=== PATIENT | female | born 1995 ===

== ENCOUNTER 2017-10-15 17:28 | Emergency (ER) | payer OTHER ==
--- NOTE | 2017-10-15 20:44 | US ---
EXAM: US Biophysical Profile Without Non-Stress Testing EXAM DATE/TIME: Exam ordered 10/15/2017 6:09 PM CLINICAL HISTORY: 21 years old, female; Signs and symptoms; Other: Decreased movement; TECHNIQUE: Real-time ultrasound of the maternal pelvis for biophysical profile evaluation with image documentation. COMPARISON: No relevant prior studies available. FINDINGS: breathing movements: Present. Score 2/2. Gross body movements: Present. Score 2/2. tone: Present. Score 2/2. Qualitative amniotic fluid volume: Within normal limits. Score 2/2. Biometry BPD = [9.5 to cm]; Estimated Menstrual Age = [38 w 6 d]; Range = [34 E9U-48F0S] HC = [35.45 cm]; Estimated Menstrual Age = [41 w 3 d]; Range = [92W5F-71G0C] AC = [34.72 cm]; Estimated Menstrual Age = [38 w 4 d]; Range = [71A7J-88Q4Y] FL = [7.34 cm]; Estimated Menstrual Age = [37 w 4 d]; Range = [46U7W-82 W5D] HC/AC Ratio = [1.02] normal 0.87-1.06 EFW = 3579 g plus or -537 g (7 lbs. 14 oz. plus or -1 lb. 3 oz.) FANTA= 12.78 Placenta: Posterior and fundal HR =[128 bpm] Cervix =2.67 cm Survey Heart [Normal] Stomach [Normal] Bladder [Normal] 3 vessel CORD (normal) IMPRESSION: 1. Single live intrauterine with an estimated menstrual age of 39 weeks and 1 day plus or -2 weeks and 5 days. Expected date of delivery 10/21/2017. 2. Normal biophysical profile ultrasound. Score 8/8. 3. Limited survey. 4. Mild cervical shortening
[2017-10-16 00:05] VITALS: RESP 18; TEMP 98.1
== END 2017-10-15 20:00 | disposition home or self-care (01) ==
LOC: C.EROB 17:28
DX: O36.8130 Decreased fetal movements, third trimester, not applicable or unspecified (principal); Z3A.39 39 weeks gestation of pregnancy

== ENCOUNTER 2017-10-21 10:41 | Inpatient (IN) | payer OTHER ==
--- NOTE | 2017-10-21 13:13 | US ---
PROCEDURE: BIOPHYSICAL PROFILE HISTORY: Please check FANTA. COMPARISON: Comparison is made to the previous study dated 10/15/2017 TECHNIQUE: Real-time ultrasound of the maternal pelvis for biophysical profile evaluation with image documentation. FINDINGS: breathing movements: Present. Score 2/2. Gross body movements: Present. Score 2/2. tone: Present. Score 2/2. Qualitative amniotic fluid volume: Within normal limits, score 2/2. Amniotic fluid index FANTA: 12.36 centimeter. Biometry: BPD = 9.74 cm; femoral length: 7.83 centimeter Placenta: Posterior and fundal. HR =140 bpm. Cervix = 2.89 cm. Survey. Heart Normal. Stomach Normal. Bladder Normal. IMPRESSION: Single intrauterine live with ultrasound estimated gestational age of 39 weeks 6 days 2 weeks 6 days. Estimated date of delivery by ultrasound is 10/22/2017. Sonographic biophysical profile 8 of 8. Amniotic fluid index 12.36 centimeter. Cervix closed measures 2.89 centimeter.
[2017-10-21] MEDS ORDERED: Lactated Ringer's 1,000 ML IV SCH ×4 (13:30→21:32)
[2017-10-21 14:12] LABS: BASO % 0.2 % (0.0-2.0); EOS % 0.3 % (0.0-4.0); HEMOGLOBIN 11.4 g/dL (11.0-16.0); LYMPH # 1.4 K/uL (1.0-4.3); LYMPH % 13.3 % (20.0-40.0); MEAN CELL VOLUME 80.1 fL (81.0-99.0); MEAN CORPUSCULAR HGB CONC 33.8 g/dL (33.0-37.0); MEAN PLATELET VOLUME 8.2 fL (7.2-11.7); MONO # 0.7 K/uL (0.0-0.8); MONO % 7.4 % (0.0-10.0); NEUT % 78.8 % (50.0-75.0); RBC 4.22 Mil/uL (3.80-5.20); RED CELL DISTRIBUTION WIDTH 14.7 % (11.5-14.5); WHITE BLOOD COUNT 10.1 K/uL (4.8-10.8)
[2017-10-21] MEDS ORDERED: Oxytocin 30 UNIT 30 UNITS/500 ML BAG IV SCH ×2 (14:15→17:15)
[2017-10-21] MEDS ORDERED: Oxytocin 30 UNIT 30 UNITS/500 ML BAG IV ONE (14:16)
--- NOTE | 2017-10-21 14:19 | OBHP ---
Datetime: 10/21/2017 14:05 IP Adm Impression: Term, intrauterine HEENT - PN: Normal General - PN: Normal FHR - Baseline A Provider: 135 Contraction Comments Provider: q2-6min IP Hx Assessment: The History has been Reviewed and is Current EGA AdmitDate IP: 39.6 Vital Signs Provider: Reviewed; Within Normal Limits IP Chief Complaint: Uterine contractions NICHD Variability Prov Fetus A: Moderate 6-25bpm NICHD Accel Fetus A IP Provider: 15X15 FHR Category Provider Fetus A: Category I NICHD Decel Fetus A IP Provider: None Dilatation, Provider: 5 Effacement, Provider: 80 Station, Provider: -3 Datetime: 10/21/2017 11:23 IP Admit Plan: Observation/Evaluation Admit Comment, IP Provider: Patient is a 21 year old at 39w6d JOSHUA 10/22/17 by LMP 01/15/17 c/w 9w4d US presents to L+D for contractions that started at 3am this morning. Patient states that she f eels contractions every 5 min and pain scale is 5/10 at this time. Also reports losing her mucous plu g. Denies recent intercourse. Patient was recently seen on 10/15/17 for decreased FM, at that time BPP was 8/8 and NST was reactive. Endorses +FM, denies VB, LOF. Issues: Denies Patient goes to [facility] for care OB Hx: 1. 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 agree w/ above assessment and plan. Pelvic Type - PN: Adequate Extremities - PN: Normal Abdomen - PN: Normal Back - PN: Normal Lungs - PN: Normal Heart - PN: Normal Neurologic - PN: Normal Presentation-Admit: Vertex Membranes, Provider: Intact Comments, ACOG Physical Exam: VSS Gen: AAOx3 Abd: Soft, gravid Ext: No clubbing, cyanosis, edema SVE: 3-50/-2 (Examined by Dr Galarza) Genitourinary Exam: Normal Datetime: 10/15/2017 17:58 IP Chief Complaint Other: Abdominal pressure
[2017-10-21] MEDS ORDERED: cefOXitin IV 2 gm in Saline 2 GM/50 ML BAG IVPB ONE (14:21)
[2017-10-21] MEDS ORDERED: Sodium Citrate/Citric Acid 15 ml Sol PO ONE (14:21)
[2017-10-21 14:24] LABS: ALB/GLOB RATIO 1.1 (1.0-2.1); ALBUMIN 3.2 g/dL (3.5-5.0); ALT/SGPT 19 U/L (9-52); AST/SGOT 16 U/L (14-36); BLOOD UREA NITROGEN 7 mg/dL (7-17); CALCIUM 8.6 mg/dl (8.6-10.4); GFR AFRICAN-AMERICAN > 60; GFR NON-AFRICAN AMERICAN > 60
[2017-10-21 14:27] LABS: SQUAMOUS EPITHIAL 5 /hpf (0-5); URINE BACTERIA OCC (<OCC); URINE BILIRUBIN NEGATIVE (NEGATIVE); URINE BLOOD 2+ (NEGATIVE); URINE CLARITY Hazy (Clear); URINE COLOR Yellow (YELLOW); URINE GLUCOSE (UA) NORMAL (Normal); URINE LEUKOCYTE ESTERASE TRACE Leu/uL (Negative); URINE NITRATE NEGATIVE (NEGATIVE); URINE PROTEIN NEGATIVE (NEGATIVE); URINE UROBILINOGEN NORMAL mg/dL (0.2-1.0)
[2017-10-21] MEDS ORDERED: ceFAZolin IV 2 gm in Dextrose 2 GM/50 ML BAG IVPB ONE ×3 (14:32→19:13)
[2017-10-21] MEDS ORDERED: Oxytocin 20 units in LR 2,000 ML IV ONE (14:34)
--- NOTE | 2017-10-21 14:40 | OBADHP ---
Datetime: 10/21/2017 14:05 Admit Comment, IP Provider: Patient is a 21 year old at 39w6d JOSHUA 10/22/17 by LMP 01/15/17 c/w 9w4d US presents to L+D for contractions that started at 3am this morning. Patient states that she f eels contractions every 5 min and pain scale is 5/10 at this time. Also reports losing her mucous plu g. Denies recent intercourse. Patient was recently seen on 10/15/17 for decreased FM, at that time BPP was 8/8 and NST was reactive. Endorses +FM, denies VB, LOF. Issues: Denies Patient goes to [facility] for care OB Hx: 1. 2012 at term, female , 7lbs 8oz, no complications (patient was induced for oligo) 2. Current [employer] Hx: LMP 01/15/17 Triad: 13 x monthly x 5 days Denies history of fibroids, ovarian cysts, STIs Last pap was 03/2017, normal Allergies: NKDA Medications: PNV Medical Hx: Denies Surgical Hx: Denies Social Hx: Denies alcohol, tobacco, drug use; Family Hx: Denies PE: See above A/P: 21 year old at 39w6d presents in labor, BPP today 8/8, EFW noted to be 9lbs 13oz toda y. Last EFW on 10/15 was 7lbs 14oz. Patient has only gained 8lbs during the . Although EFW le ss likely to be 9lbs 13oz, discussed findings with the patient and offered her a , she chris es trial of labor. -Will admit to unit -CEFM and TOCO -Admission labs: CBC, CMP, TS, UA -Lactated ringers 125cc/hr -Desires epidural, anesthesia consulted -Diet: NPO -Pitocin for augmention if needed -GBS negative, no antibiotics needed at this time -Anticipate Vaginal Delivery -Plan discussed with Dr Carol Smith DO PGY-1 ob attending addendum: d/w pt us report last wk and today reg efw. risk of shouldr dytocia if w/ lga d/w pt. pt a dvised that she does not have many of the risk factors for macrosomia- increased wt gain w/ preg, mat obesity, gdm, dm in preg, h/o prior macrosomia, post dates. pt d/w w/ spouse and states she does not want to take risk of shoulder dystocia. p: informed consent for cd and blood transfusion obtained. ancef preop HEENT - PN: Normal General - PN: Normal Presentation-Admit: Vertex FHR - Baseline A Provider: 135 Membranes, Provider: Intact Contraction Comments Provider: q2-6min IP Hx Assessment: The History has been Reviewed and is Current Vital Signs Provider: Reviewed; Within Normal Limits IP Chief Complaint: Uterine contractions NICHD Variability Prov Fetus A: Moderate 6-25bpm NICHD Accel Fetus A IP Provider: 15X15 FHR Category Provider Fetus A: Category I NICHD Decel Fetus A IP Provider: None Dilatation, Provider: 5 Effacement, Provider: 80 Station, Provider: -3 EGA AdmitDate IP: 39.6 IP Adm Impression: Term, intrauterine Datetime: 10/21/2017 11:23 Pelvic Type - PN: Adequate Extremities - PN: Normal Abdomen - PN: Normal Back - PN: Normal Lungs - PN: Normal Heart - PN: Normal Neurologic - PN: Normal Comments, ACOG Physical Exam: VSS Gen: AAOx3 Abd: Soft, gravid Ext: No clubbing, cyanosis, edema SVE: /-2 (Examined by Dr Galarza) Genitourinary Exam: Normal IP Admit Plan: Observation/Evaluation Datetime: 10/15/2017 17:58 IP Chief Complaint Other: Abdominal pressure
[2017-10-21] MEDS ORDERED: Morphine 1 mg/ml preservative-free Inj(Duramorph) ONE ×2 (14:51→19:38)
[2017-10-21] MEDS ORDERED: Phenylephrine 10 mg/ml Inj ONE (14:51)
[2017-10-21] MEDS ORDERED: ePHEDrine 50 mg/ml Inj ONE (14:51)
[2017-10-21] MEDS ORDERED: Bupivacaine HCl/FentaNYL Cit 100 ML EPI ONE (16:24)
--- NOTE | 2017-10-21 18:36 | OBPN ---
Datetime: 10/21/2017 17:47 IP Progress Impression: Normal progression of labor IP Informed Consent Obtain: Vaginal Delivery IP Procedures: Artificial ROM IP Progress Plan: Continue present management Membranes, Provider: Ruptured Amniotic Fluid Color, Provider: Clear Contraction Comments Provider: q2-3 min FHR - Baseline A Provider: 135 Vital Signs Provider: Reviewed; Within Normal Limits NICHD Accel Fetus A IP Provider: 15X15 FHR Category Provider Fetus A: Category I NICHD Variability Prov Fetus A: Moderate 6-25bpm Dilatation, Provider: 6 Effacement, Provider: 90 Station, Provider: -1 NICHD Decel Fetus A IP Provider: None Datetime: 10/21/2017 17:00 IP Progress Note Comment: US films reviewed and no percentile was noted with the measurements. US tech was called to request this, also d/w her discrepancy in efw this vs last wk. She stated she would come up and repeat us. Repeat us showed efw of showed 8lb2oz. Dr Olson called to confirm this and stated this should be the assumed efw. This was d/w pt and she decided to proceed with attempt o f vag delivery. Datetime: 10/21/2017 14:05 Presentation-Admit: Vertex
[2017-10-21] MEDS ORDERED: Lidocaine 2% MPF (5 ml) Inj ONE (19:37)
[2017-10-21] MEDS ORDERED: Propofol 10 mg/ml Inj (20 ML) ONE ×2 (19:42→19:46)
[2017-10-21] MEDS ORDERED: Midazolam 2 MG/2 ML VIAL ONE (20:04)
[2017-10-21] MEDS ORDERED: DiphenhydrAMINE 50 mg/ml Inj IVP PRN (21:29)
[2017-10-21] MEDS ORDERED: Morphine Monoject Barrel PCA 1mg/ml IV PRN (21:32)
--- NOTE | 2017-10-21 21:44 | OBDS ---
DELIVERY PERSONNEL Delivery Doctor: Dr Mohamud Sales Associate Key Holder: Stephanie Johnson RN Anesthesiologist: Dr Abraham Resident: dr Barney MATERNAL INFORMATION Delivery Anesthesia: General Placenta Cultured: Yes Provider Comments: preop dx: intolerance to labor; 39.6wk postop dx: same procedure: primary LTCD surg: juan burdick 1st asst: dr. waters; pgy1 dr barney anesth: dr abraham anesth: epid; GEA findings: viable female; LOP; 3_9 apgars; cord ph 7.24 8lb4oz; grossly nl uterus, ovaries, tubes ebl: 1000cc trujillo cath to drainage pt to rr; neon to nbn path: plac sent complications: none LABOR SUMMARY EDC: 10/22/2017 00:00 No. Babies in Womb: 1 LABOR INFORMATION Onset of Labor: 10/21/2017 10:00 Group B Beta Strep: Negative MEMBRANES Membranes Rupture Method: Artificial Amniotic Fluid Color: Clear Amniotic Fluid Amount: Large Amniotic Fluid Odor: Normal STAGES OF LABOR Stage 3 hrs: 0 Stage 3 min: 1 Total Time in Labor hrs: 9 Total Time in Labor min: 50 CSECTION DELIVERY Primary Indication: Nonreassuring Status Other Primary Indication: bradycardia CSection Urgency: Emergency CSection Incidence: Primary Labor: Labor Elective: Nonelective CSection Incision: Lower Uterine Transverse BABY A INFORMATION Delivery Date/Time: 10/21/2017 19:49 Method of Delivery: Born in Route : No : N/A Forceps: N/A Vacuum Extraction: N/A Shoulder Dystocia : No SHOULDER DYSTOCIA BABY A Infant Delivery Date/Time: 10/21/2017 19:49 PRESENTATION/POSITION BABY A Presentation: Cephalic Cephalic Presentation: Vertex Vertex Position: Left Occipital Posterior Breech Presentation: N/A PLACENTA INFORMATION BABY A Placenta Delivery Time : 10/21/2017 19:50 Placenta Method of Delivery: Expressed Placenta Status: Delivered SCORES BABY A Heart Rate 1 min: Slow, Below 100 bpm Resp Effort 1 min: Slow, Irregular Reflex Irritability 1 min: No Response Muscle Tone 1 min: Flaccid Color 1 min: Body Crisman, Extremities Blue Resuscitation Effort 1 min: Tactile Stimulation; Oxygen; PPV/NCPAP SCORE 1 MIN: 3 Heart Rate 5 min: >100 bpm Resp Effort 5 min: Good Cry Reflex Irritability 5 min: Cough or Sneeze or Pulls Away Muscle Tone 5 min: Active Motion Color 5 min: Body Crisman, Extremities Blue Resuscitation Effort 5 min: N/A SCORE 5 MIN: 9 INFANT INFORMATION BABY A Gestational Age at Delivery: 39.6 Gestational Status: Term Infant Outcome : Liveborn Infant Condition : Stable Infant Sex: Female IDENTIFICATION/MEDS BABY A ID Band Number: [id number] ID Band Location: Left Leg; Left Arm Sensor Applied: Yes Sensor Number: [id number] Sensor Location : Cord Clamp Vitamin K Given : Not Given Erythromycin Given: Not Given WEIGHT/LENGTH BABY A Birthweight (gms): 3755 Infant Weight (lb): 8 Infant Weight (oz): 4 Infant Length Inches: 20.00 Length cms: 50.8 CORD INFORMATION BABY A No. Cord Vessels: 3 Nuchal Cord : N/A Cord Blood Taken: Yes Infant Suction: Mouth; Nose ASSESSMENT BABY A Complications: Extended Bradycardia; Multiple Late Decels; Multiple Variable Decels Physical Findings at Delivery: Within Normal Limits Infant Respirations: Grunting Database Administration Project Manager/ALS Called : No Infant Care By: dr Kelley Transferred To: [facility]
[2017-10-22 06:27] LABS: BASO % 0.1 % (0.0-2.0); LYMPH % 8.1 % (20.0-40.0); MEAN CELL VOLUME 79.5 fL (81.0-99.0); MEAN CORPUSCULAR HEMOGLOBIN 26.3 pg (27.0-31.0); MEAN CORPUSCULAR HGB CONC 33.1 g/dL (33.0-37.0); MONO # 0.8 K/uL (0.0-0.8); MONO % 6.5 % (0.0-10.0); NEUT # 10.6 K/uL (1.8-7.0); NEUT % 85.3 % (50.0-75.0); PLATELET COUNT 161 K/uL (130-400); RBC 2.41 Mil/uL (3.80-5.20); RED CELL DISTRIBUTION WIDTH 14.6 % (11.5-14.5); WHITE BLOOD COUNT 12.4 K/uL (4.8-10.8)
[2017-10-22 06:37] LABS: HEMOGLOBIN 6.4 g/dL (11.0-16.0)
--- NOTE | 2017-10-22 08:07 | OP ---
PROCEDURE DATE: 10/21/2017 PREOPERATIVE DIAGNOSES: 1. 39.6 weeks gestation. 2. intolerance to labor. POSTOPERATIVE DIAGNOSES:. 1. 39.6 weeks gestation. 2. intolerance to labor. PROCEDURE: Primary low transverse delivery. SURGEON: Ankita Galarza MD AUTOMOTIVE SALES ASSOCIATE: Dr. Celestin and Dr. Contreras. ANESTHESIOLOGIST: Dr. Frank. TYPE OF ANESTHESIA: Epidural followed by general endotracheal anesthesia. FINDINGS: Showed a viable female in left occiput posterior presentation, Apgars of 3 and 9, cord pH was 7.24, weight was 8 pounds 4 ounces, grossly normal uterus, bilateral ovaries and tubes. ESTIMATED BLOOD LOSS: 1000 mL. PATHOLOGY: Placenta sent. Raza catheter to drainage. DESTINATION: The patient to recovery room in satisfactory condition, to nursery. COMPLICATIONS: None. INDICATIONS: The patient is a 21-year-old female, 2, para 1, presents at 39.6 weeks in labor. During the course of her labor, the patient developed recurrent variable decelerations associated with contractions, and it was decided to proceed with primary section. Risks, benefits, and indications discussed with the patient. She agreed with the planned procedure. Informed consent was obtained. DESCRIPTION OF PROCEDURE: The patient was taken back to the OR and was prepped and draped in a routine sterile fashion. After she was tested to see if her anesthesia was adequate, the patient complained of pain and her anesthesia . The patient was reassessed and still in pain. Due to the urgent nature of , the patient underwent general anesthesia. A Pfannenstiel skin incision was made with a knife and this was carried down to the underlying rectus fascia which was incised in the midline and extended bilaterally with the Moreno. The inferior rectus fascial edge was grasped with Aayush and elevated and underlying rectus muscle was dissected off. The same procedure was performed along the superior rectus fascia. The peritoneum was identified, tented, and incised superiorly and inferiorly. The bladder flap was created using sharp dissection. The bladder blade was used to retract it further and a low uterine transverse incision was made with a knife. The uterine cavity was entered bluntly, and the was delivered. The was noted to be in left occiput transverse presentation. The mouth and nares were suctioned. The cord was clamped and cut, and the baby was handed off to the awaiting balloon design printer. Cord segment was obtained for cord pH. Cord blood was collected. Placenta was delivered spontaneously and intact. The uterus was exteriorized and cleared of all clots and debris. The uterus was repaired with 0 Chromic in a running locked fashion. There was a lateral extension noticed along the left lateral portion and this required several figure-of eight with Chromic and Monocryl. A second layer of closure along the uterus was performed with 0 Monocryl in an imbricated fashion. The abdomen was irrigated and cleared of all clots and debris. The uterus was returned to the abdomen and the pelvis was irrigated and cleared of all clots and debris. The uterine incision was reinspected and good hemostasis was confirmed. The peritoneum was reapproximated with 2-0 Vicryl in a running fashion. The fascia was reapproximated with 0 Vicryl in a running fashion, beginning at the left lateral going to the midline and tied, and followed by another suture of 0 Vicryl beginning at the right lateral going to the midline and tied, each was respectively tied. The wound was irrigated. Good hemostasis was confirmed. The subcutaneous tissue was reapproximated with 2-0 plain in a simple interrupted fashion. The skin was reapproximated with 3-0 Vicryl in a subcuticular fashion. All sponge, lap, and needle counts were correct. Of note, Dr. Celestin was my surgical nurse practitioner. He assisted in surgical exposure, surgical hemostasis, and surgical closure. His assistance was essential for the procedure. Ankita Galarza MD
[2017-10-22] MEDS: Oxycodone/Acetaminophen 5/325 mg Tab PO PRN ×2 (08:38→18:37)
[2017-10-22 08:56] VITALS: RESP 18
[2017-10-22] MEDS: Simethicone 80 mg Chewtab PO SCH ×4 (09:16→23:43)
[2017-10-22 09:31] LABS: BANDS 15 % (0-2); LYMPHOCYTE 7 % (20-40); MONOCYTE 2 % (0-10); NEUTROPHIL 76 % (50-75); PLATELET ESTIMATE NORMAL (NORMAL); TOTAL CELLS COUNTED 100
[2017-10-22 09:33] LABS: HYPOCHROMIC SLIGHT; OVALOCYTES SLIGHT
--- NOTE | 2017-10-22 18:31 | OBPPN ---
Datetime: 10/22/2017 07:53 PP Pain Prov: Within normal limits PP Nausea Prov: Denies PP Flatus Prov: Yes PP BM Prov: No PP Breasts Prov: Normal PP Heart Prov: Normal PP Lungs Prov: Normal PP Abdomen/Uterus Prov: Normal PP Lochia Prov: Not Done PP Vulva/Perineum Prov: Not Done PP CVA Tenderness Prov: Not Done PP Extremities Prov: Normal PP C/S Incision Prov: Normal PP Progress Prov: Normal PP Impression Prov: Normal progression PP Plan Prov: Continue present management PP Impression Other Prov: Anemia PP Progress Note Prov: Patient seen and examined at bedside. Per nursing staff, no acute events afte r the surgery. Today, she reports feeling well overall. Pain is a 5/10 in severity, adequately contro lled with current pain regimen. She has not yet attempted to get out of bed, trujillo is in. Tolerating diet. Denies nausea, vomiting, diarrhea, or urinary symptoms. Denies any chest pain, shortness of caro ath, dizziness, fever, chills, headache. Breast and bottle feeding. VS: HR 84, BP 96/62, T 98.4 Gen: NAD, AAOx3, lying in bed CV: RRR, S1, S2 Pulm: CTA b/l Abd: Soft, fundus firm, at level of umbilicus deviated to the right, dressing, c/d/i Ext: Warm, 4/5 pulses in all extremities, capillary refill <2 sec. No clubbing, cyanosis, or edema Labs: 10.1>11.4/33.8<185 12.4>6.4/19.2<161 O positive, Rubella Immune A/P 22 yo who initially presented in labor at 39w6d s/p PLTCD for variable and late decels PO D#1, with significant intraoperative bloodloss - VSS - Post op Hgb 6.4 - Will transfuse 2 units PRBC; consent in chart - Recheck post-transfusion CBC - Pain well controlled; continue current regimen - Clear liquid diet, advance diet as tolerated - Will D/C trujillo after transfusion - OOB to chair as tolerated after transfusion - Continue routine care - Encourage - Encourage ISS use - Plan discussed with Dr. Luke Zafar DO PGY1 Attending Note: patient seen and evaluated by me with the Resident; I agree with the above. Post o p H/H attests to the intraoperative acute blood loss. Patient agrees to receiveing blood transfusion. Consent reaffirmed. Patient remains clinically stable. Plan: 1) Transfuse 2 units PRBCs 2) All else as above. IP PP Procedures: Transfusion Vital Signs Provider PP: Reviewed
[2017-10-22 19:40] LABS: BASO % 0.1 % (0.0-2.0); EOS % 0.1 % (0.0-4.0); LYMPH # 1.5 K/uL (1.0-4.3); MEAN CORPUSCULAR HEMOGLOBIN 27.7 pg (27.0-31.0); MEAN CORPUSCULAR HGB CONC 33.4 g/dL (33.0-37.0); MONO # 1.1 K/uL (0.0-0.8); MONO % 9.3 % (0.0-10.0); NEUT # 8.9 K/uL (1.8-7.0); NEUT % 77.5 % (50.0-75.0); NRBC % 0.1 % (0.0-2.0); RBC 2.89 Mil/uL (3.80-5.20); RED CELL DISTRIBUTION WIDTH 15.8 % (11.5-14.5); WHITE BLOOD COUNT 11.5 K/uL (4.8-10.8)
[2017-10-22 19:41] LABS: MEAN CELL VOLUME 82.8 fL (81.0-99.0)
[2017-10-22] MEDS ORDERED: Bisacodyl 5mg EC Tab PO ONE (21:31)
[2017-10-23] MEDS: Oxycodone/Acetaminophen 5/325 mg Tab PO PRN ×2 (05:07→20:53)
[2017-10-23 07:19] LABS: BASO % 0.2 % (0.0-2.0); EOS % 0.1 % (0.0-4.0); LYMPH # 1.2 K/uL (1.0-4.3); LYMPH % 10.7 % (20.0-40.0); MEAN CELL VOLUME 82.8 fL (81.0-99.0); MEAN CORPUSCULAR HEMOGLOBIN 27.4 pg (27.0-31.0); MEAN CORPUSCULAR HGB CONC 33.1 g/dL (33.0-37.0); MEAN PLATELET VOLUME 7.8 fL (7.2-11.7); MONO # 0.8 K/uL (0.0-0.8); NEUT # 9.1 K/uL (1.8-7.0); RBC 2.92 Mil/uL (3.80-5.20); RED CELL DISTRIBUTION WIDTH 15.6 % (11.5-14.5); WHITE BLOOD COUNT 11.1 K/uL (4.8-10.8)
[2017-10-23] MEDS: Simethicone 80 mg Chewtab PO SCH ×4 (09:44→21:17)
[2017-10-24] MEDS: Oxycodone/Acetaminophen 5/325 mg Tab PO PRN ×2 (02:09→11:00)
[2017-10-24 09:00] VITALS: PULSE 80; O2SAT 98
--- NOTE | 2017-10-24 10:02 | OBPPN ---
Datetime: 10/24/2017 07:49 PP Pain Prov: Within normal limits PP Nausea Prov: Denies PP Flatus Prov: Yes PP BM Prov: No PP Heart Prov: Normal PP Lungs Prov: Normal PP Abdomen/Uterus Prov: Normal PP Lochia Prov: Normal PP Extremities Prov: Normal PP C/S Incision Prov: Normal PP Progress Prov: Normal PP Impression Prov: Normal progression PP Plan Prov: Continue present management; Discharge PP Progress Note Prov: Patient seen and examined at bedside. Per nursing no acute events overnight. Patient is doing well, pain is controlled. Lochia is mild. Ambulating and tolerating diet. Passing fl atus denies BM. Urinating without difficulty. Breast and bottle feeding. Denies headache, dizziness, cp, palpitations, sob, urinary symptoms. VS: 90/59 86 98.7 Gen: AAOx3 Abd: Soft, fundus firm below umbilicus, incision c/d/i with steristrips Ext: No clubbing, cyanosis, edema; no calf tenderness Labs: 10.1>11.4/33.8/<185 124.>6.4/19.2<161 11.5>8.0/23.9<170 11.1>8.0/24.2<163 O positive Rubella immune A/P: 22 year old at 39w6d S/P PLTCD 2/2 intolerance to labor POD#3 -Stable, afebrile -Pain control: percocet and motrin prn -Encourage ambulation and hydration -Encourage and ISS use -Acute blood loss anemia: Ferrous sulfate 325mg PO BID -Continue routine care -Discussed contraceptive options, patient desires the implanon -Will D/C home today : pelvic rest x 6 weeks, f/u with clinic within 1 week for incision check -Plan discussed with Dr Luke Smith DO PGY-1 Attending Note: patient was seen and evaluated by me with the Resident; I agree with the above. Pa papito is stable and cleared for discharge. Vital Signs Provider PP: Reviewed; Within Normal Limits
--- NOTE | 2017-10-24 10:04 | OBDCSUM ---
Datetime: 10/24/2017 10:00 Discharged to, Provider: Home Follow up at, Provider: Clinic Disch Instr Activity: Normal activity; May be up to bathroom; May be up for meals; May Shower Disch Instr Diet: Regular Discharge Instructions, Provider: Routine instructions given Discharge Diagnosis, Provider: Term Delivered Follow up in weeks, Provider: 10/29/17 Contraception discussed, Prov: Yes; desires implant Disch Activity Restrictions: No lifting; No sexual activity; Nothing in vagina - [place], tampon s, douche Discharge Diagnosis Prov Other: Status post primary section Acute blood loss anemia Status post blood transfusion Contraception counseling
[2017-10-24] MEDS: Simethicone 80 mg Chewtab PO SCH (11:00)
[2017-10-24 20:21] VITALS: BP 95/60; TEMP 97.5
== END 2017-10-24 13:55 | disposition home or self-care (01) | DRG 370 ==
LOC: C.EROB 10:41 → C.4D 13:25 → C.4M 10-22 00:09
PROVIDERS: ADMIT Obstetrics & Gynecology; ATTEND Obstetrics & Gynecology
PROC: 10D00Z1 Extraction of Products of Conception, Low, Open Approach (ICD-10-PCS; principal; 2017-10-21)
DX: O76 Abnormality in fetal heart rate and rhythm complicating labor and delivery (principal); D62 Acute posthemorrhagic anemia; O99.02 Anemia complicating childbirth; Z3A.39 39 weeks gestation of pregnancy; Z37.0 Single live birth